=== PATIENT | female | born 1925 | race Caucasian/White ===

== ENCOUNTER 2017-02-21 15:47 | Emergency (ER) | payer MEDICARE, BC ==
[2016-11-04 14:06] VITALS: BMI 23.9
[~2017-02-21 15:47] MED LIST: BAYER CHEWABLE81 MG PO; BUSPAR5 MG PO; CAPTOPRIL100 MG PO; CELEXA10 MG PO; FOLTX TABLET1 EACH PO; FUROSEMIDE20 MG PO; GLIPIZIDE10 MG PO; LANTUS SOL100 UNIT/1 SC; NEXIUM40 MG; NORVASC10 MG PO; PHENERGAN25 M1 PO
[2017-02-21 19:22] LABS: APPEARANCE CLEAR (CLEAR); BILIRUBIN NEGATIVE (NEGATIVE); COLOR YELLOW (YELLOW); GLUCOSE 100 mg/dL (NEGATIVE); KETONE NEGATIVE (NEGATIVE); LEUKOCYTE ESTERASE NEGATIVE (NEGATIVE); NITRITE NEGATIVE (NEGATIVE); PROTEIN NEGATIVE (NEGATIVE); SPECIFIC GRAVITY 1.005 (1.005-1.020); UROBILINOGEN NORMAL (NORMAL)
== END 2017-02-21 20:36 | disposition other institution (70) ==
LOC: D.ER 15:47
PROVIDERS: Physician Assistant Medical
DX: S00.83XA Contusion of other part of head, initial encounter (principal); W01.0XXA Fall on same level from slipping, tripping and stumbling without subsequent striking against object, initial encounter; Y93.89 Activity, other specified; Y92.129 Unspecified place in nursing home as the place of occurrence of the external cause; F03.90 Unspecified dementia, unspecified severity, without behavioral disturbance, psychotic disturbance, mood disturbance, and anxiety; I10 Essential (primary) hypertension; E11.9 Type 2 diabetes mellitus without complications; K21.9 Gastro-esophageal reflux disease without esophagitis; I25.10 Atherosclerotic heart disease of native coronary artery without angina pectoris; F32.9 Major depressive disorder, single episode, unspecified; Z95.0 Presence of cardiac pacemaker